=== PATIENT | female | born 1935 | race Hispanic/Latino ===

== ENCOUNTER → 2020-11-07 | Outpatient (CLI) | payer OTHER, MEDICARE | END | disposition home or self-care (01) | LOC: SHCH 08:18 | PROVIDERS: ATTEND Internal Medicine Cardiovascular Disease | DX: R06.00 Dyspnea, unspecified (principal); R01.1 Cardiac murmur, unspecified; Z95.1 Presence of aortocoronary bypass graft | CPT/HCPCS: 93306; 93356 ==

== ENCOUNTER → 2020-11-13 | Outpatient (CLI) | payer MEDICARE, OTHER ==
[~2020-11-13] MED LIST: REGADENOSON 0.4 MG/5 ML PF SYG IVP SCH
== END | disposition home or self-care (01) ==
LOC: EDUNIT# 11-12 08:40 → SHCH 08:57
PROVIDERS: ATTEND Internal Medicine Cardiovascular Disease
DX: R06.00 Dyspnea, unspecified (principal); R01.1 Cardiac murmur, unspecified; Z95.1 Presence of aortocoronary bypass graft
CPT/HCPCS: 78452; 93017; 96374; A9500 ×2; J2785

== ENCOUNTER 2021-01-22 05:51 | Day surgery (SDC) | payer MEDICARE ==
[2021-01-18 12:40] LABS: BASOPHILS % (AUTO) 0.5 % (0.0-5.0); EOSINOPHILS % (AUTO) 2.7 % (0.0-8.0); HEMATOCRIT 36.4 % (36-48); LYMPHOCYTES % (AUTO) 24.5 % (21.0-51.0); MEAN CORPUSCULAR HEMOGLOBIN 29.1 pg (27.0-33.0); MEAN CORPUSCULAR VOLUME 93.8 fL (79-99); MONOCYTES % (AUTO) 10.7 % (3.0-13.0); NEUTROPHILS % (AUTO) 61.2 % (40.0-77.0); PLATELET COUNT (AUTO) 308 K/uL (130-400); RED BLOOD CELL COUNT(AUTO) 3.88 MIL/uL (4.00-5.50); RED CELL DISTRIBUTION WIDTH 14.5 % (11.0-15.5); WHITE BLOOD COUNT (AUTO) 10.5 K/uL (4.8-10.8)
[2021-01-18 12:50] LABS: POTASSIUM 4.7 mmol/L (3.5-5.1)
[2021-01-18 13:37] LABS: INR 0.97 (0.85-1.15); PROTHROMBIN TIME 10.6 SEC (9.6-11.6)
[2021-01-18 13:38] LABS: PARTIAL THROMBOPLASTIN TIME 29.6 SEC (26.3-35.5)
[2021-01-21 09:03] VITALS: BP 132/67
[2021-01-22] VITALS (7 sets, daily range): BP systolic 101–137; BP diastolic 38–52
[~2021-01-22] VITALS: Ht 157.5 cm; Wt 80.6 kg
[~2021-01-22 05:51] MED LIST changes: +ACET325C6 PO; +APIX5TAB PO; +ATOR40TA69 PO; +CYAN10007 IJ; +DOCU-116 PO; +DONE5TAB33 PO; +ESCI20TA38 PO; +FOLI1 PO; +FURO40TA7 PO; +LACT10SO9 PO; +LEVO75TA10 PO; +LOSA100T58 PO; +MELA3TAB41 PO; +MULT-1367 PO; -REGADENOSON 0.4 MG/5 ML PF SYG IVP SCH; +SPIR25TA6 PO
[2021-01-22] MEDS: 0.9%NACL 1000ML 1,000 ML IV SCH (06:45)
[2021-01-22] MEDS ORDERED: BUPIVACAINE/PF 0.25% 30ML VIAL IJ ONE (07:19)
[2021-01-22] MEDS ORDERED: LIDOCAINE HCL 1% MDV 50ML VIAL ONE (07:20)
[2021-01-22] MEDS ORDERED: FENTANYL CITRATE PF 50 MCG/1 ML 2ML VIAL ONE (07:49)
[2021-01-22] MEDS ORDERED: MIDAZOLAM HCL 1 MG/ML 2ML VIAL ONE (07:49)
== END 2021-01-22 10:40 ==
LOC: DAH 05:51
PROVIDERS: ATTEND Internal Medicine Cardiovascular Disease
DX: I48.0 Paroxysmal atrial fibrillation (principal); I50.9 Heart failure, unspecified; I25.10 Atherosclerotic heart disease of native coronary artery without angina pectoris; I44.7 Left bundle-branch block, unspecified; Z95.1 Presence of aortocoronary bypass graft; Z79.899 Other long term (current) drug therapy
CPT/HCPCS: 33285; 36415; 80048; 85025; 85610; 85730; 93005; 99156; J2250; J3010; J3490; J7030

== ENCOUNTER 2021-11-11 14:41 | Emergency (ER) | payer MEDICARE ==
[~2021-11-11] VITALS: Ht 154.9 cm; Wt 79.4 kg
[2021-11-11] MEDS ORDERED: L.E.T. GEL 3ML SYG TP ONE (15:00)
[2021-11-11 15:09] LABS: BASOPHILS % (AUTO) 0.4 % (0.0-5.0); EOSINOPHILS % (AUTO) 2.9 % (0.0-8.0); HEMATOCRIT 39.4 % (36-48); LYMPHOCYTES % (AUTO) 24.4 % (21.0-51.0); MEAN CORPUSCULAR HEMOGLOBIN 28.8 pg (27.0-33.0); MEAN CORPUSCULAR HGB CONC 31.2 g/dL (32.0-36.0); MEAN CORPUSCULAR VOLUME 92.3 fL (79-99); MONOCYTES % (AUTO) 8.9 % (3.0-13.0); PLATELET COUNT (AUTO) 298 K/uL (130-400); RED BLOOD CELL COUNT(AUTO) 4.27 MIL/uL (4.00-5.50); RED CELL DISTRIBUTION WIDTH 13.4 % (11.0-15.5); WHITE BLOOD COUNT (AUTO) 11.1 K/uL (4.8-10.8)
[2021-11-11 15:30] LABS: CREATININE 1.2 mg/dL (0.5-1.5); POTASSIUM 4.3 mmol/L (3.5-5.1)
[2021-11-11 15:35] LABS: ALBUMIN 3.4 g/dL (3.5-5.0); BILIRUBIN,TOTAL 0.4 mg/dL (0.2-1.0)
[2021-11-11] MEDS ORDERED: LIDOCAINE/PRILOCAINE CREAM 5GM TUBE TP ONE (15:52)
[2021-11-11] MEDS ORDERED: LIDOCAINE/PRILOCAINE CREAM 5GM TUBE TP SCH (16:00)
[2021-11-11 16:45] VITALS: BP 158/59
== END 2021-11-11 17:13 | disposition home or self-care (01) ==
LOC: EDH 14:41
DX: S01.81XA Laceration without foreign body of other part of head, initial encounter (principal); I11.9 Hypertensive heart disease without heart failure; E78.00 Pure hypercholesterolemia, unspecified; Z79.899 Other long term (current) drug therapy; W18.39XA Other fall on same level, initial encounter; Y93.89 Activity, other specified; Y92.89 Other specified places as the place of occurrence of the external cause; Y99.8 Other external cause status
CPT/HCPCS: 12013; 36415; 70450; 71045; 72125; 80053; 85025